=== PATIENT | female | born 1960 | race Caucasian/White ===

== ENCOUNTER 2018-02-01 08:36 | Outpatient (CLI) | payer OTHER | END 2018-02-01 08:37 | disposition home or self-care (01) | LOC: BICMAMMO 08:36 | PROVIDERS: ATTEND Student in an Organized Health Care Education/Training Program | DX: Z12.31 Encounter for screening mammogram for malignant neoplasm of breast (principal) | CPT/HCPCS: 77063; 77067 ==

== ENCOUNTER 2019-02-22 06:43 | Outpatient (CLI) | payer OTHER ==
--- NOTE | 2019-02-22 09:45 | ULT ---
RIGHT BREAST ULTRASOUND: INDICATIONS: Follow up outside abnormality seen of the right breast from [facility]. COMPARISON: Screening mammogram from 02/05/2019; this examination demonstrated a 1.7 cm equal density oval lesion within the right breast 10 o'clock position. FINDINGS: Samson-scale ultrasound and color Doppler ultrasound images were obtained of the region of interest in the right breast 10 o'clock position, 3 cm from the nipple. Corresponding to the abnormality seen on the mammogram is a 1.8 x 0.7 x 1.4 cm cyst. IMPRESSION: BI-RADS category 2 - benign. Recommend routine annual mammographic screening. The patient was counseled on the findings prior to [facility]. The equal density mass seen within the right breast 10 o'clock position on the outside screening mamm ographic evaluation dated 02/05/2019 corresponds to a simple cyst. POS: OFF
== END 2019-02-22 06:44 | disposition home or self-care (01) ==
LOC: BICULT 06:43
PROVIDERS: ATTEND Student in an Organized Health Care Education/Training Program
DX: N63.10 Unspecified lump in the right breast, unspecified quadrant (principal)